=== PATIENT | female | born 1950 | race Caucasian/White ===

== ENCOUNTER 2020-12-05 09:26 | Emergency (ER) | payer MEDICARE ==
[~2020-12-05] VITALS: Ht 157.5 cm; Wt 65.9 kg
[2020-12-05 09:35] VITALS: TEMP 99.1
[2020-12-05] MEDS ORDERED: VITAMIN B COMPL1 SGL PO (09:42)
[2020-12-05 09:48] LABS: BASO % 0.5 % (0.0-2.0); EOS # 0.1 (0.0-0.7); EOS % 1.1 % (0-4.0); GRAN # 2.6 (1.4-6.5); GRAN % 59.1 % (42.2-75.2); HEMATOCRIT 42.8 % (37.0-47.0); HEMOGLOBIN 14.6 g/dl (12.5-16.0); LYMPH % 23.5 % (20.0-51.0); MEAN CELL VOLUME 87 fl (80.0-100.0); MEAN CORPUSCULAR HEMOGLOBIN 30 pg (27.0-31.0); MEAN CORPUSCULAR HGB CONC 34 g/dl (33.0-37.0); MEAN PLATELET VOLUME 11.1 fl (7.4-10.4); MONO # 0.7 (0.1-0.6); MONO % 15.6 % (1.7-9.3); PLATELET COUNT 166 K/mm3 (130-400)
[2020-12-05] MEDS ORDERED: MASON NATURAL1200 MG PO (09:50)
[2020-12-05] MEDS ORDERED: TYLENOL 325MG325 MG PO (09:50)
[2020-12-05] MEDS ORDERED: TUMERIC (09:50)
[2020-12-05] MEDS ORDERED: [UNRECOGNIZED DRUG - OTHER] (09:51)
[2020-12-05] MEDS ORDERED: BALANCE (09:51)
[2020-12-05] MEDS ORDERED: DHEA 10 MG TAB1 EACH PO (09:52)
[2020-12-05] MEDS ORDERED: [UNRECOGNIZED DRUG - OTHER] (09:52)
[2020-12-05] MEDS ORDERED: ASPIRIN 32325 MG/TAB PO (09:53)
[2020-12-05 09:59] LABS: INR 1.1 (0.8-3.0); PROTHROMBIN TIME 11.8 SECONDS (9.7-12.8)
[2020-12-05 10:02] LABS: PARTIAL THROMBOPLASTIN TIME 32.1 SECONDS (26.0-37.0)
[2020-12-05 10:07] LABS: ALANINE AMINOTRANSFERASE 24 U/L (4-34); ALBUMIN 4.2 gm/dL (3.5-5.0); ALKALINE PHOSPHATASE 88 U/L (50-136); ANION GAP 9 mmol/L (7-16); AST,SGOT 36 U/L (15-37); BILIRUBIN,TOTAL 0.4 mg/dL (0.0-1.0); BLOOD UREA NITROGEN 13 mg/dL (7-17); CALCIUM 9.7 mg/dL (8.4-10.2); CARBON DIOXIDE 24 mmol/L (22-30); CHLORIDE 101 mmol/L (98-107); CREATININE, serum 0.56 (0.52-1.25); GLUCOSE 118 mg/dL (74-106); POTASSIUM 3.7 mmol/L (3.4-5.0); SODIUM 134 mmol/L (137-145); TOTAL PROTEIN 7.4 gm/dL (6.4-8.2)
[2020-12-05 10:23] LABS: TROPONIN-I < 0.012 ng/mL (0.000-0.035)
[2020-12-05 12:23] VITALS: BP 120/76; PULSE 67
== END 2020-12-05 12:24 | disposition home or self-care (01) ==
LOC: COL.ER 09:26
PROVIDERS: Family Medicine
DX: R07.89 Other chest pain (principal); Z95.0 Presence of cardiac pacemaker

== ENCOUNTER → 2022-03-07 | Outpatient (CLI) | payer MEDICARE ==
[~2022-03-07] MED LIST: ASPIRIN 32325 MG/TAB PO; BALANCE; DHEA 10 MG TAB1 EACH PO; MASON NATURAL1200 MG PO; TUMERIC; TYLENOL 325MG325 MG PO; VITAMIN B COMPL1 SGL PO; [UNRECOGNIZED DRUG - OTHER]; [UNRECOGNIZED DRUG - OTHER]
== END ==
LOC: MC.RAD 13:34
DX: Z12.31 Encounter for screening mammogram for malignant neoplasm of breast (principal)